=== PATIENT | male | born 1975 | race Caucasian/White ===

== ENCOUNTER 2025-02-26 22:03 | Emergency (ER) | payer MEDICARE, MEDICAID ==
[~2025-02-26] VITALS: Ht 172.7 cm; Wt 76.0 kg
[2025-02-26 22:25] VITALS: O2SAT 100
[2025-02-26 23:01] LABS: PLATELET 252 x1000/uL (130-400); RED BLOOD CELL COUNT 4.66 mill/uL (4.7-6.1); RED CELL DISTRIBUTION WIDTH 13.7 % (11.6-14.6)
[2025-02-26 23:10] LABS: CREATININE 0.9 mg/dL (0.6-1.3); UREA NITROGEN BLOOD 8 mg/dL (9-23)
[2025-02-26 23:12] LABS: TROPONIN I HIGH SENSITIVITY 6 ng/L (3.0-53)
[2025-02-27 00:58] VITALS: TEMP 36.7
[2025-02-27] MEDS ORDERED: CEFTRIAXONE 250MG/ML (FOR IM ONLY) IM ONE (01:45)
[2025-02-27] MEDS: CEFTRIAXONE SODIUM 1G VIAL IM NR (02:13)
[2025-02-27] MEDS ORDERED: DOXY-461 MT (02:51)
[2025-02-27 02:54] VITALS: BP 124/82; PULSE 68; RESP 21; O2SAT 100
== END 2025-02-27 03:04 | disposition home or self-care (01) ==
LOC: ER 22:03
DX: J18.9 Pneumonia, unspecified organism (principal); F84.0 Autistic disorder
CPT/HCPCS: 99285; 71045; 80048; 85027; 84484; 36415; 93005; 96372; J0696